=== PATIENT | male | born 1980 | race Caucasian/White ===

== ENCOUNTER 2018-01-27 04:10 | Emergency (ER) | payer SELFPAY ==
[2018-01-27 04:11] VITALS: BP 179/107; PULSE 94; RESP 20; TEMP 36.9; O2SAT 97; BMI 30.4
--- NOTE | 2018-01-27 04:21 | ED.DCSUM_ITS ---
- ER Visit Summary Date of Service: 01/27/18 Chief Complaint: [] Cramping History of Present Illness: The patient is a 37 M [] complaining of diffuse extremity and abdominal cramping. Patient reports symptoms were so severe he had difficulty getting out of bed. Reports he has had this type of cramping before in the past but this has never lasted as long as this current presentation. Denies fevers or chills. Physical Examination: [] Afebrile, vital signs stable. 37-year-old male in no acute distress. Conversational. Cardiovascular exam is regular rate and rhythm. Lungs are clear to auscultation. Abdomen is soft and nontender. No lower extremity edema. Test Results: [] Labs: White blood cell count elevated 16.1. BMP reveals a sodium of 134 and a BUN and creatinine of 27 and 1.39, respectively. LFTs normal. CK was obtained and measured 810. Emergency Department Course and Treatment: [] Patient given 1 L normal saline. On serial exam he had mild improvement of symptoms. After his CK level and creatinine returned he was given an additional liter bolus. He was encouraged to follow-up with his primary care physician. I do not feel any further diagnostic or laboratory testing was warranted. Treatment Plan: [] Hydration, follow-up with PCP. Disposition: [] Discharge, stable. Impression: [] Dehydration Muscle cramps This note was generated with [employer] dictation software. It may contain incorrect words, spelling, and punctuation that were not noted in review of the chart prior to signing ED Disposition - Plan for ED Patient: Chief Complaint: Other, Pain/Inj Referrals: Care Physician,No Primary [Primary Care Provider] -
[2018-01-27] MEDS: 0.9% Normal Saline 1,000 ML 1000 ML IV (04:33)
[2018-01-27 04:52] LABS: Absolute Neutrophil Count 11.9 X10^3/uL (2.0-7.7); Basophil# 0.02 X10^3/uL; Basophil% 0.1 % (0-1); Eosinophil# 0.03 X10^3/uL; Eosinophils% 0.2 % (0-5); Hemoglobin 15.7 g/dl (13.0-16.5); Lymphocyte % 19.2 % (19-41); Mean Corp Hgb Conc 34.9 g/gl (32-36); Mean Corpuscular Hgb 30.6 pg (27.0-32.0); Mean Corpuscular Volume 87.7 fL (80-94); Mean Platelet Vol. 10.1 fl (6.2-12.0); Monocyte# 1.09 X10^3/uL; Monocyte% 6.8 % (0-10); Neutrophil # 11.87 X10^3/uL (2.7-7.7); Neutrophil % 73.5 % (47-70); Platelet Count 310 K/mm3 (150-450); RBC Distribution Width CV 13.1 % (11.6-14.6); RBC Distribution Width SD 42.4 fl (35.1-43.9); Red Blood Count 5.13 M/mm3 (4.6-6.2); White Blood Count 16.1 K/mm3 (4.4-11.0)
[2018-01-27 05:00] LABS: POSITIVE COUNT NO; POSITIVE DIFFERENTIAL NO; POSITIVE MORPHOLOGY NO
[2018-01-27 05:27] LABS: AST(SGOT) 33 U/L (15-37); Alanine Aminotransfer ALT/SGPT 44 U/L (16-61); Albumin, Serum 4.4 g/dL (3.2-5.0); Alkaline Phosphatase 141 U/L (45-117); Anion Gap 12 (5-15); BUN 27 mg/dL (7-18); BUN/Creat Ratio 19.4 RATIO (10-20); Calcium,Total 9.2 mg/dL (8.5-10.1); Chloride 100 mmol/L (98-107); Creatinine, Serum 1.39 mg/dL (0.70-1.30); EST Glomerular Filtration Rate 61 mL/min (>60); Est Glom Filt Rate - Afr Amer 74 mL/min (>60); Globulin 4.2 g/dL (2.2-4.2); Glucose 160 mg/dL (74-106); Potassium 3.5 mmol/L (3.5-5.1); Protein, Total 8.6 g/dL (6.4-8.2); Sodium Level 134 mmol/L (136-145)
[2018-01-27 06:02] LABS: CPK Total, Creatine Kinase 810 U/L (39-308)
--- NOTE | 2018-01-27 06:25 | ED.DEP ---
ED Disposition - Plan for ED Patient: Disposition: Home or Assisted Living Chief Complaint: Other, Pain/Inj Instructions: ED Muscle Pain Leg Cramps, Dehydration Referrals: Care Physician,No Primary [Primary Care Provider] -
[2018-01-27] MEDS: 0.9% Normal Saline 1,000 ML 999 ML IV (06:29)
[2018-01-27 06:30] VITALS: BP 138/63; PULSE 67; RESP 12; O2SAT 98
[2018-01-27 08:04] VITALS: RESP 14
[2018-01-27 08:12] VITALS: BP 150/87; PULSE 74; RESP 16; TEMP 36.3; O2SAT 98
== END 2018-01-27 08:13 | disposition home or self-care (01) ==
PROVIDERS: Emergency Provider Emergency Medicine
DX: E86.0 Dehydration (principal); R25.2 Cramp and spasm; I10 Essential (primary) hypertension; Z72.0 Tobacco use
CPT/HCPCS: 80053; 82550; 85025; 99283; J7030; A4216; C1751

== ENCOUNTER 2018-06-17 00:35 | Emergency (ER) | payer MEDICAID, SELFPAY ==
[2018-06-17 00:36] VITALS: BP 158/101; PULSE 84; RESP 15; TEMP 36.5; O2SAT 98; BMI 33.4
--- NOTE | 2018-06-17 01:23 | CT_ITS ---
STUDY: CT ABDOMEN AND PELVIS WITH CONTRAST REASON FOR EXAM: Male, 37 years old. Left lower abdominal pain RADIATION DOSAGE (If Supplied By Facility): CTDIvol = ( 22.02 ) mGy, DLP = ( 1684.46 ) mGycm TECHNIQUE: Transaxial images were obtained from the dome of the diaphragm to the symphysis pubis without oral contrast. 100ML ml of Isovue 300 contrast was administered. Sagittal and coronal images were reconstructed. Individualized dose optimization techniques were used for this CT. COMPARISON: May 22, 2017. FINDINGS: 3 mm left lower lobe pulmonary nodule. The visualized portions of the heart are within normal limits. There is decreased attenuation of the liver consistent with steatosis. Normal gallbladder and extrahepatic biliary system. Normal spleen. Normal pancreas. Normal bilateral adrenal glands. Subcentimeter low-attenuation structure within the right kidney too small to characterize by CT criteria however statistically likely represents a cyst. No hydronephrosis identified. Normal visualized stomach. Normal small intestine. There is distal descending colonic wall thickening with some associated fatty stranding. There is mild diverticulosis present. The appendix is visualized and appears normal. Normal abdominal aorta. Normal inferior vena cava. Normal retroperitoneum. Normal urinary bladder. There is a small umbilical hernia containing fat. There is some fatty stranding seen within the hernia as well as within the adjacent abdomen. There are diffuse degenerative changes of the visualized lumbar spine. Left hip arthroplasty causes streak artifact through the region somewhat limiting evaluation. There is prior AVN of the right femoral head. CT/Abdomen/Pelvis W IV Cont ONLY IMPRESSION: Hepatic steatosis. The appendix is visualized and appears grossly unremarkable. There is a fat-containing ventral abdominal wall hernia. Within the hernia there is fatty stranding present. There is also fatty stranding within the adjacent abdomen. There is no significant bowel wall thickening within this region. Findings could represent strangulated/incarcerated fat/omentum. These findings have increased compared to prior exam. Distal descending colonic wall thickening with adjacent fatty stranding. This could represent focal colitis versus diverticulitis. Other findings as discussed above. Electronically Signed: Candido Lynn, at 2:36 EDT Tel , Service support ,
--- NOTE | 2018-06-17 01:23 | ED.VIS.GEN ---
History of Present Illness Chief Complaint: Abd Pain Informant: Patient Onset: Days - 3-4 Context: Gradual Onset Timing: Continuous Quality: ache Location: LLQ Current Severity: Moderate Maximum Severity: Moderate Worsened by: walking Relieved by: rest Associated Symptoms: vomited couple days ago. chronic low back pain. - Past Medical History (1) Avascular necrosis of bone of left hip Status: Chronic (2) GERD (gastroesophageal reflux disease) Status: Chronic Past Medical History - Allergies and Home Meds Allergies/Adverse Reactions: Allergies hydroxyzine HCl [From Atarax] Allergy (Verified 06/17/18 00:36) Hives ziprasidone HCl [From Geodon] Allergy (Verified 06/17/18 00:36) Hives ziprasidone mesylate [From Geodon] Allergy (Verified 06/17/18 00:36) Hives lisinopril Adverse Reaction (Verified 06/17/18 00:36) Other Primary Care Physician: Care Physician,No Primary [Primary Care Provider] - Surgical History: total hip arthroplasty - left Smoking Status: Current every day smoker Review of Systems General: Denies: Chills, Fever, Sweats Cardiovascular: Denies: Chest pain, Palpitations Respiratory: Denies: Dyspnea, Cough, Dyspnea on exertion Gastrointestinal: Reports: Abdominal pain, Vomiting - couple days ago, none since. pt does not think related.. Denies: Nausea, Diarrhea, Constipation, Melena, Hematochezia Genitourinary: Denies: Dysuria, Hematuria, Frequency Musculoskeletal: Reports: Back pain - chronic, no worse, Extremity Pain - right hip, chronic, unchanged. Denies: Neck pain, Swelling Skin: Denies: Rash Neurological: Denies: Headache, Weakness, Numbness Psych: Denies: Depression, Anxiety Endocrine: Denies: Polyuria, Polydipsia Hematologic: Denies: Easy bruising, Easy bleeding Allergy: Denies: Swelling of the mouth, Swelling of the tongue Physical Exam Vital Signs/Narrative: Vital Signs Temp Pulse Resp BP Pulse Ox 06/17/18 00:36 97.7 F L 84 15 158/101 H 98 Inital Vital Signs reviewed: Yes General: Well nourished, Well developed, - - nad Head: Normocephalic, Atraumatic Eyes: Perrl, EOMI ENT: Moist mucous membranes, No rhinorrhea Neck: Supple, Nontender Cardiovascular: Regular rate, Regular rhythm, No murmurs Respiratory: No distress, CTA bilaterally, Chest nontender Abdomen: Soft, Nondistended, Normal bowel sounds, Tender - LLQ > LUQ. otherwise, NT., Umbilical hernia - NT, no erythema, Hernia reducible Back: Nontender, Normal Inspection Extremities: Nontender, No edema Skin: Normal color, No rash Neurological: Alert, Oriented x3, Cranial nerves II-XII grossly intact, Normal Strength, Normal Sensation, Normal Gait Psychological: Normal affect Diagnostic/Tx/Re-eval Impressions Abdomen/Pelvis CT 06/17/18 01:23 IMPRESSION: Hepatic steatosis. The appendix is visualized and appears grossly unremarkable. There is a fat-containing ventral abdominal wall hernia. Within the hernia there is fatty stranding present. There is also fatty stranding within the adjacent abdomen. There is no significant bowel wall thickening within this region. Findings could represent strangulated/incarcerated fat/omentum. These findings have increased compared to prior exam. Distal descending colonic wall thickening with adjacent fatty stranding. This could represent focal colitis versus diverticulitis. Other findings as discussed above. Electronically Signed: Candido Leah, at 2:36 EDT Tel , Service support , 06/17/18 01:23 Abdomen/Pelvis W IV Cont ONLY [CT] Stat Laboratory Results 06/17/18 06/17/18 06/17/18 01:35 01:35 01:40 WBC 13.0 H RBC 4.91 Hgb 15.0 Hct 45.0 MCV 91.6 MCH 30.5 MCHC 33.3 RDW 13.9 RDW Differential 45.8 H Plt Count 292 MPV 9.5 Immature Gran % (Auto) 0.500 Neut % (Auto) 66.3 Lymph % (Auto) 22.5 [place] % (Auto) 6.0 Eos % (Auto) 4.5 Baso % (Auto) 0.2 Absolute Neuts (auto) 8.7 H Absolute Lymphs (auto) 2.93 Total Counted Not Reportable Sodium 140 Potassium 4.1 Chloride 109 H Carbon Dioxide 27.0 Anion Gap 4 L BUN 11 Creatinine 0.93 Estim Creat Clear Calc 105.22 Est GFR (MDRD) Af Amer 117 Est GFR (MDRD) Non-Af 97 BUN/Creatinine Ratio 11.9 Glucose 108 H Calcium 8.8 Urine Color Yellow Urine Clarity Clear Urine pH 5.0 Ur Specific [place] 1.020 Urine Protein Negative Urine Glucose (UA) Normal Urine Ketones Negative Urine Occult Blood 10 H Urine Nitrite Negative Urine Bilirubin Negative Urine Urobilinogen Normal Ur Leukocyte Esterase Negative Urine RBC 0 SEEN Urine WBC 0 SEEN Ur Squamous Epith Cells 0 SEEN Urine Bacteria 0 SEEN Urine Mucus 0 SEEN - Medical Decision Making Labs show a leukocytosis, urinalysis unremarkable. Given the location of his pain I thought a CT with IV contrast was warranted, and it does confirm suspicion for diverticulitis. It also shows some stranding in the fat that is within his ventral hernia. This area is nontender, it feels easily reducible and does not feel like it contains bowel. I think it is less likely that he is having infarction of this mesenteric fat since he has no pain or tenderness in that area, but the treatment for the most part is supportive care for that, which was suggested also on the CT. His pain is well controlled after a dose of Toradol. He is nontoxic and his vital signs are unremarkable except for hypertension, he does not have a PCP, he will need to have his blood pressure rechecked and follow-up with a doctor, Dr. Allen is the next doctor on the unassigned list. I think he can be treated as an outpatient and will need to follow-up and possibly have a colonoscopy when he is better. He is getting IV Cipro and Flagyl and will be prescribed a 10-day course of both. He is comfortable with this overall plan. ED Disposition - Plan for ED Patient: Disposition: Home or Assisted Living Chief Complaint: Abd Pain Diagnosis: Diverticulitis Instructions: ED Diverticulitis Prescriptions: Ciprofloxacin [Cipro] 500 mg PO BID #20 tab Metronidazole [Flagyl] 500 mg PO BID #20 tab Referrals: Jared Allen MD [STAFF PHYSICIAN] - 5-7 Days
[2018-06-17] MEDS: 0.9% Normal Saline 1,000 ML 125 ML IV (01:36)
[2018-06-17] MEDS: Ketorolac 30 MG/ML Syringe IV (01:36)
[2018-06-17 01:42] LABS: Bacteria 0 SEEN /hpf (None Seen); Mucous, Urine 0 SEEN /hpf (<or=2+); Red Blood Cells-Urine 0 SEEN /hpf (0-5); Squamous Epithelial Cells - UA 0 SEEN /hpf (0-5); White Blood Cells 0 SEEN /hpf (0-5)
[2018-06-17 01:45] LABS: Absolute Lymphocyte Count 2.93 X10^3/ul (0.83-4.51); Absolute Neutrophil Count 8.7 X10^3/uL (2.0-7.7); Basophil# 0.03 X10^3/uL; Basophil% 0.2 % (0-1); Eosinophil# 0.59 X10^3/uL; Eosinophils% 4.5 % (0-5); Lymphocyte # 2.93 X10^3/ul (4.0); Lymphocyte % 22.5 % (19-41); Mean Corp Hgb Conc 33.3 g/gl (32-36); Mean Corpuscular Hgb 30.5 pg (27.0-32.0); Mean Corpuscular Volume 91.6 fL (80-94); Mean Platelet Vol. 9.5 fl (6.2-12.0); Monocyte# 0.78 X10^3/uL; Neutrophil # 8.65 X10^3/uL (2.7-7.7); Neutrophil % 66.3 % (47-70); Platelet Count 292 K/mm3 (150-450); RBC Distribution Width CV 13.9 % (11.6-14.6); RBC Distribution Width SD 45.8 fl (35.1-43.9); Red Blood Count 4.91 M/mm3 (4.6-6.2)
[2018-06-17 01:45] LABS: Color, Urine Yellow (Yellow); Glucose, Dipstick Normal (Normal); Ketone-Dipstick Negative (Negative); Leukocyte Esterase-Dipstick Negative /ul (Negative); Nitrite-Dipstick Negative (Negative); Occult Blood-Urine 10 /ul (Negative); Protein-Dipstick Negative (Negative); Urine Bilirubin Dipstick Negative (Negative); Urine Clarity Clear (Clear); Urine Urobilinogen Normal (Normal)
[2018-06-17 01:47] LABS: POSITIVE COUNT NO; POSITIVE DIFFERENTIAL NO; POSITIVE MORPHOLOGY NO
[2018-06-17 01:57] LABS: Anion Gap 4 (5-15); BUN 11 mg/dL (7-18); BUN/Creat Ratio 11.9 RATIO (10-20); Calcium,Total 8.8 mg/dL (8.5-10.1); Chloride 109 mmol/L (98-107); Creatinine, Serum 0.93 mg/dL (0.70-1.30); EST Glomerular Filtration Rate 97 mL/min (>60); Est Glom Filt Rate - Afr Amer 117 mL/min (>60); Estimated Creatinine Clearance 105.22 ml/min; Glucose 108 mg/dL (74-106); Potassium 4.1 mmol/L (3.5-5.1); Sodium Level 140 mmol/L (136-145)
[2018-06-17] MEDS: Ciprofloxacin 400 MG/200 ML BAG 200 MG IV (03:22)
[2018-06-17 04:36] VITALS: BP 141/72; PULSE 80; RESP 14; O2SAT 98
== END 2018-06-17 04:37 | disposition home or self-care (01) ==
PROVIDERS: Emergency Provider Emergency Medicine
DX: K57.92 Diverticulitis of intestine, part unspecified, without perforation or abscess without bleeding (principal); K43.9 Ventral hernia without obstruction or gangrene; F17.200 Nicotine dependence, unspecified, uncomplicated; K21.9 Gastro-esophageal reflux disease without esophagitis; M87.850 Other osteonecrosis, pelvis; Z96.642 Presence of left artificial hip joint
CPT/HCPCS: 74177; 80048; 81001; 85025; 96361; 96365; 96367; 96375; 99283; J7030; Q9967; A4216; J0744

== ENCOUNTER 2018-10-03 17:46 | Emergency (ER) | payer MEDICAID, SELFPAY ==
[2018-09-12 09:17] VITALS: BMI 34.3
[2018-10-03 17:46] VITALS: BP 145/115; PULSE 94; RESP 17; TEMP 36.7; O2SAT 99; BMI 32.5
--- NOTE | 2018-10-03 18:01 | ED.VISSUMM ---
- ER Visit Summary Date of Service: 10/03/18 Chief Complaint: Right shoulder injury History of Present Illness: The patient is a 38 M [id number] presents valuation right upper extremity injury occurring around 9 AM this morning. Slipped on ice on outstretched arm. No head injuries. Pain worse with overhead movement. Pain goes from the shoulder to the elbow. No paresthesias. No history of similar in the past. History of avascular necrosis with left total hip arthroplasty. Performed by Dr. Allen in [place]. No history of gastric ulcers, reports may have had kidney insufficiency on a visit here in the past. No medications taken prior to arrival. States just wants to know was not broken so he can do his job. There is no head injuries. No neck or back pain. Physical Examination: General: Alert and oriented ?3, no acute distress HEENT: Normocephalic, atraumatic. Moist mucosa membranes Neck: supple, nontender. Cardiovascular: Regular rate and rhythm, no murmurs Respiratory: Normal breath sounds, symmetric, no distress Abdomen: Soft, nontender, nondistended Extremities: Right upper extremity: No clavicular tenderness. No reproducible proximal shoulder tenderness with palpation no deformities. No elbow tenderness. Positive empty can and Appley's. Neurovascular intact distally. Neuro: no focal neurological deficits. Test Results: Right shoulder x-ray: No fracture or dislocation. Emergency Department Course and Treatment: Patient exam concerns for rotator cuff strain specifically the supraspinatus. Patient declined any medications. With his concerns for rule out fracture x-ray was obtained reviewed myself shows no fracture or dislocation. Exercises were shown to the patient. Discussed he can use Tylenol as needed. I did review records back in January of last year he did have slight renal insufficiency resolved at 1.3. Patient will follow up with his PCP. He is reassured. Treatment Plan: [] Disposition: Discharge Impression: Right rotator cuff muscle strain This note was generated with [employer] dictation software. It may contain incorrect words, spelling, and punctuation that were not noted in review of the chart prior to signing ED Disposition - Plan for ED Patient: Disposition: Home or Assisted Living Diagnosis: Rotator cuff strain Instructions: Understanding Rotator Cuff Injuries Referrals: Jonathan Ellington MD [Primary Care Provider] - 5-7 Days
--- NOTE | 2018-10-03 18:02 | RAD_ITS ---
STUDY: X-RAY - RIGHT SHOULDER REASON FOR EXAM: Male, 38 years old. Injury TECHNIQUE: 4 view(s) of the shoulder. COMPARISON: None. FINDINGS: Normal glenohumeral articulation. Mild degenerative hypertrophy of the acromioclavicular joint. Normal acromion. Normal humeral head and visualized proximal humerus. The soft tissue structures are unremarkable. Normal visualized pulmonary apex. RAD/Shoulder min 2 Views IMPRESSION: Mild degenerative changes of the shoulder. Electronically Signed: Orlando Bueno DO at 18:38 EST Tel [phone], Service support ,
== END 2018-10-03 18:22 | disposition home or self-care (01) ==
PROVIDERS: Emergency Provider Emergency Medicine; Family Provider Internal Medicine; PCP Internal Medicine
DX: S46.011A Strain of muscle(s) and tendon(s) of the rotator cuff of right shoulder, initial encounter (principal); W00.0XXA Fall on same level due to ice and snow, initial encounter; Y93.9 Activity, unspecified; Y92.89 Other specified places as the place of occurrence of the external cause; Y99.9 Unspecified external cause status; Z72.0 Tobacco use; J45.909 Unspecified asthma, uncomplicated; I10 Essential (primary) hypertension; K21.9 Gastro-esophageal reflux disease without esophagitis
CPT/HCPCS: 73030; 99282

== ENCOUNTER 2019-05-08 07:44 | Emergency (ER) | payer MEDICAID, SELFPAY ==
[2019-05-08 07:46] VITALS: BP 153/94; PULSE 70; RESP 18; TEMP 36.9; O2SAT 100; BMI 31.6
--- NOTE | 2019-05-08 08:00 | RAD_ITS ---
STUDY: X-RAY - PELVIS AND LEFT HIP REASON FOR EXAM: Male, 38 years old. Coccygeal pain. No known injury. TECHNIQUE: 3 views of the pelvis and hip. COMPARISON: Comparison is made with prior study dated May 27, 2016. FINDINGS: There is a non-specific bowel gas pattern. There are multiple calcified phleboliths. Normal bilateral iliac wings, sacroiliac joints and visualized sacrum. Normal bilateral superior and inferior pubic rami. Normal pubic symphysis. Normal bilateral ischial tuberosities. The patient is status post left hip replacement. There is good alignment. Stable examination. Once again, this prominent enthesophytes arising from the left acetabulum. RAD/HIP, UNI W/ Pelvis 2-3 Views IMPRESSION: Stable examination. Electronically Signed: Sacha Gonzales, at 8:32 EDT , Service support ,
[2019-05-08] MEDS: Naproxen 500 MG Tablet PO (08:18)
--- NOTE | 2019-05-08 08:35 | ED.VISSUMM ---
- ER Visit Summary Date of Service: 05/08/19 Chief Complaint: Left hip and tailbone pain History of Present Illness: The patient is a [address] Ellington and Dr. Allen. He reports that he had a left hip replacement in 2013 for avascular necrosis by Dr. Allen. He denies any recent trauma. No fall, MVA, or change in activity. However, he reports he has chronic left hip pain that worsened approximately 1 week ago. It is a sharp pain Zeta 10 severity at worst and 7-10 currently. Is worsened with movement, bending over, or coughing. Is relieved by shifting his weight, sitting down, naproxen. Denies any numbness or weakness. No fever or chills. Physical Examination: Vitals: Stable. Afebrile. General: Well-nourished and well-developed. Head: Normocephalic atraumatic. Neck: Supple, no lymphadenopathy. No JVD. Nontender. Cardiovascular: Regular rate and rhythm. No murmurs. Respiratory: No respiratory distress. Clear to auscultation bilaterally. Abdominal: Soft, nontender, nondistended, normal bowel sounds. No guarding, rebound, or peritoneal signs. Back: Nontender. Extremities: Mild tenderness palpation over the left greater trochanter and the posterior aspect of his hip. Mild tenderness palpation over the coccyx and sacrum. Full range of motion without any difficulty. He is neurovascular intact distal to this. There is no overlying erythema or warmth to suggest an infected joint. Skin: Normal color, no rash. Neurologic: Alert and oriented ?3. Cranial nerves II through XII are intact. Normal strength and sensation. Psych: Normal affect. Test Results: Left hip right x-ray shows chronic changes. The hardware is intact. It does not appear to be loosening. Emergency Department Course and Treatment: Patient was treated with naproxen. He is ambulating about the emergency department without difficulty. Treatment Plan: Patient be discharged on naproxen. Instructed to follow-up with Dr. Allen in 1 week if not improving. Return to the emergency department for any worsening symptoms. Disposition: To home in improved and stable condition. Impression: 1. Left hip pain, acute on chronic. 3. History of avascular necrosis left hip requiring total hip arthroplasty. This note was generated with [employer] software. It may contain incorrect words, spelling, and punctuation that were not noted in review of the chart prior to signing ED Disposition - Plan for ED Patient: Instructions: Hip Strain Prescriptions: Naproxen [Naprosyn] 500 mg PO BID #14 tab Prescription Printed Referrals: Dusty Davila [NON-STAFF] - 1 Week if not improving
[2019-05-08 08:53] VITALS: RESP 16
== END 2019-05-08 08:53 | disposition home or self-care (01) ==
LOC: ED 08:06
PROVIDERS: Emergency Provider Emergency Medicine; Family Provider Internal Medicine; PCP Internal Medicine
DX: M25.552 Pain in left hip (principal); G89.29 Other chronic pain; M53.3 Sacrococcygeal disorders, not elsewhere classified; Z96.642 Presence of left artificial hip joint; R05 Cough; J02.9 Acute pharyngitis, unspecified; I10 Essential (primary) hypertension; F17.210 Nicotine dependence, cigarettes, uncomplicated
CPT/HCPCS: 73502; 99283

== ENCOUNTER 2020-06-04 19:53 | Emergency (ER) | payer SELFPAY ==
[2020-06-04 19:54] VITALS: BP 161/111; PULSE 120; RESP 18; TEMP 36.2; O2SAT 99
--- NOTE | 2020-06-04 20:26 | RAD_ITS ---
HISTORY: Neck pain for several months radiating into right shoulder. Exam: Right Shoulder 3 views COMPARISON: October 03, 2018 FINDINGS: # of images incl. paperwork: 4 XR Shoulder Min 2 Views: The humeral head is well-positioned within the glenoid fossa. No fracture or subluxation. The acromioclavicular joint is arthritic. The adjacent chest is unremarkable. RAD/Shoulder min 2 Views IMPRESSION: No evidence of acute injury or dislocation to the right shoulder. Progressive right acromioclavicular joint arthritis. at 2107 Reported and signed by: Fabrizio Downing MD Electronically Signed: Fabrizio Downing MD at 21:06 EDT Tel , Service support ,
--- NOTE | 2020-06-04 20:26 | RAD_ITS ---
HISTORY: Neck pain for several months radiating into right shoulder. COMPARISON: None FINDINGS: # of images incl. paperwork: 3 XR Spine Cervical 2 or 3 Views: Degenerative loss of vertebral body height of the C5 vertebral body All 7 cervical vertebral bodies are identified. No acute cervical spine fracture or subluxation. Normal cervical spine alignment. Odontoid is intact. Degenerative disc disease is present at the C4-C5 C5-C6 levels. Is manifested by loss of disc height, endplate sclerosis, and anterior enthesophytes. Previous fracture fixation to the angle of the mandible on the left. Prevertebral soft tissues are normal. Facets are adequately aligned. Uncovertebral hypertrophy is present at C5 and C6 RAD/Cerv Spine 2 or 3 Views IMPRESSION: No acute cervical spine fracture or subluxation. at 2106 Reported and signed by: Fabrizio Downing MD Electronically Signed: Fabrizio Downing MD at 21:05 EDT Tel , Service support ,
--- NOTE | 2020-06-04 20:27 | ED.VIS.GEN ---
History of Present Illness Chief Complaint: Other, Pain/Inj Informant: Patient Narrative: 39-year-old male presenting with trapezius and shoulder pain which radiates down his arm. He states this is a longstanding issue but is been getting worse. He has tried ibuprofen and Tylenol but this is not helping. He has not seen his PCP for this issue. He has no direct trauma or acute injury that caused this. - Past Medical History (1) GERD (gastroesophageal reflux disease) Status: Chronic (2) Hypertension Status: Chronic Past Medical History - Allergies and Home Meds Allergies/Adverse Reactions: Allergies hydroxyzine HCl [From Atarax] Allergy (Verified 06/04/20 19:56) Hives ziprasidone HCl [From Geodon] Allergy (Verified 06/04/20 19:56) Hives ziprasidone mesylate [From Geodon] Allergy (Verified 06/04/20 19:56) Hives lisinopril Adverse Reaction (Verified 06/04/20 19:56) Other Primary Care Physician: Jonathan Ellington MD [Primary Care Provider] - Prior records reviewed: Yes Past Medical History: - - Reviewed in problem list Surgical History: noncontributory, total hip arthroplasty Lives: Alone Smoking Status: Current every day smoker Alcohol: None Drugs: None Review of Systems General: Denies: Chills, Fever, Sweats Eyes: Denies: Visual changes - bilaterally, Diplopia ENT: Denies: Rhinorrhea, Sore throat Cardiovascular: Denies: Chest pain, Palpitations Respiratory: Denies: Dyspnea, Cough, Dyspnea on exertion Gastrointestinal: Denies: Abdominal pain, Nausea, Vomiting, Diarrhea, Melena, Hematochezia Genitourinary: Denies: Dysuria, Hematuria, Frequency Musculoskeletal: Reports: Neck pain, Extremity Pain, - Skin: Denies: Rash, Abscess Neurological: Reports: Parasthesia. Denies: Headache, Weakness Physical Exam Vital Signs/Narrative: Vital Signs Temp Pulse Resp BP Pulse Ox 06/04/20 19:54 97.2 F L 120 H 18 161/111 H 99 General: Well nourished, Well developed, No Acute Distress Head: Normocephalic, Atraumatic Eyes: Perrl, EOMI ENT: Moist mucous membranes, No rhinorrhea Neck: - - Midline spinal tenderness, deformity, step-off of the cervical spine. There is tenderness elicited in the right cervical paraspinal musculature and the trapezius. Cardiovascular: Regular rate, Regular rhythm Respiratory: No distress, CTA bilaterally Extremities: - - Tenderness to palpation of the right trapezius and right anterior shoulder at the AC joint. Pain is elicited at both with extension and abduction of the right shoulder. Right hand respiratory therapy technician is 5/5 strength. Sensation is intact. Neurological: Alert, Oriented x3 Psychological: Normal affect, Normal Mood Diagnostic/Tx/Re-eval Clinical Impression(s) from Imaging Studies Cervical Spine X-Ray 06/04/20 20:26 IMPRESSION: No acute cervical spine fracture or subluxation. at 2106 Reported and signed by: Fabrizio Downing MD Electronically Signed: Fabrizio Downing MD at 21:05 EDT Tel , Service support , Shoulder X-Ray 06/04/20 20:26 IMPRESSION: No evidence of acute injury or dislocation to the right shoulder. Progressive right acromioclavicular joint arthritis. at 2107 Reported and signed by: Fabrizio Downing MD Electronically Signed: Fabrizio Downing MD at 21:06 EDT Tel , Service support , - Medical Decision Making Patient presents with symptoms of cervical radiculopathy. He does have focal pain in the anterior portion of his shoulder over the AC joint. X-rays of the cervical spine no degenerative changes of the shoulder as well as degenerative changes at C5-C6 which would explain his radiculopathy. Patient counseled to follow-up with his PCP. Patient is stable for discharge at this time. Impression: 1. Arthritic right shoulder 2. Cervical radiculopathy ED Disposition - Plan for ED Patient: Referrals: Jonathan Ellington MD [Primary Care Provider] -
== END 2020-06-04 22:05 | disposition home or self-care (01) ==
PROVIDERS: Emergency Provider Student in an Organized Health Care Education/Training Program; PCP Internal Medicine
DX: M19.011 Primary osteoarthritis, right shoulder (principal); M54.12 Radiculopathy, cervical region; F17.200 Nicotine dependence, unspecified, uncomplicated
CPT/HCPCS: 72040; 73030; 99282

== ENCOUNTER → 2020-11-11 09:28 | Outpatient (CLI) | payer MEDICAID, SELFPAY ==
[2020-11-11 08:24] VITALS: BMI 29.5
[2020-11-11 12:16] LABS: Absolute Lymphocyte Count 2.39 X10^3/uL (0.83-4.51); Absolute Neutrophil Count 6.2 X10^3/uL (2.0-7.7); Basophil# 0.04 X10^3/uL; Basophil% 0.4 % (0-1); Eosinophil# 0.38 X10^3/uL; Eosinophils% 3.9 % (0-5); Hematocrit 48.6 % (40-54); Hemoglobin 15.4 g/dL (13.0-16.5); Lymphocyte # 2.39 X10^3/ul (4.0); Lymphocyte % 24.4 % (19-41); Mean Corp Hgb Conc 31.7 g/dL (32-36); Mean Corpuscular Hgb 29.6 pg (27.0-32.0); Mean Corpuscular Volume 93.5 fL (80-94); Monocyte# 0.72 X10^3/uL; Monocyte% 7.4 % (0-10); NRBC Flagged by Analyzer 0 % (0-5); Neutrophil # 6.18 X10^3/uL (2.7-7.7); Neutrophil % 63.1 % (47-70); Platelet Count 357 K/mm3 (150-450); RBC Distribution Width CV 13.3 % (11.6-14.6); RBC Distribution Width SD 45.9 fl (35.1-43.9); White Blood Count 9.8 K/mm3 (4.4-11.0)
[2020-11-11 12:23] LABS: Vitamin D,25 Hydroxy 13.7 ng/mL
[2020-11-11 12:25] LABS: Hemoglobin A1c 5.8 % (3.8-5.6)
[2020-11-11 12:26] LABS: Erythrocyte Sedimentation Rate 6 mm/hr (0-20)
[2020-11-11 12:32] LABS: ALB/GLOB Ratio 1.1 RATIO (0.9-2.4); AST(SGOT) 18 U/L (15-37); Alanine Aminotransfer ALT/SGPT 38 U/L (16-61); Albumin, Serum 4.1 g/dL (3.2-5.0); Alkaline Phosphatase 123 U/L (45-117); Anion Gap 3 (5-15); BUN 12 mg/dL (7-18); BUN/Creat Ratio 13.8 RATIO (10-20); CPK Total, Creatine Kinase 119 U/L (39-308); CRP < 2.90 mg/L (0.0-3.0); Calcium,Total 9.8 mg/dL (8.5-10.1); Chloride 106 mmol/L (98-107); Cholesterol 214 mg/dL (200); Creatinine, Serum 0.87 mg/dL (0.70-1.30); EST Glomerular Filtration Rate 103 mL/min (>60); Est Glom Filt Rate - Afr Amer 125 mL/min (>60); Free T3 3.2 pg/mL (2.18-3.98); Globulin 3.9 g/dL (2.2-4.2); Glucose 86 mg/dL (74-106); High Density Lipoprotein 61 mg/dL; PSA,Total - Annual Screen 1.48 ng/mL (0.00-4.00); Potassium 4.8 mmol/L (3.5-5.1); Sodium Level 139 mmol/L (136-145); T4 Free Direct 1.09 ng/dL (0.76-1.46); Thyroid Stim Hormone (TSH) 1.08 uIU/mL (0.358-3.74); Triglycerides 166 mg/dL; Very Low Density Lipoprotein 33 mg/dL (5-40)
[2020-11-12 16:09] LABS: Creatine Kinase MB 0 % (0-3); Creatine Kinase MM 100 % (97-100); Creatine Kinase,Total,Serum 119 U/L (49-439); Macro I 0 % (Not Observed); Macro II 0 % (Not Observed)
[2020-11-12 21:41] LABS: Creatine Kinase BB 0 % (0)
== END ==
PROVIDERS: PCP Internal Medicine; Referring Provider Internal Medicine; Visit Provider Internal Medicine
DX: M19.90 Unspecified osteoarthritis, unspecified site (principal); I10 Essential (primary) hypertension; K21.9 Gastro-esophageal reflux disease without esophagitis; R74.8 Abnormal levels of other serum enzymes; R25.2 Cramp and spasm
CPT/HCPCS: 36415; 80053; 80061; 82306; 82550; 82552; 83036; 84153; 84439; 84443; 84481; 85025; 85652; 86140; G0103

== ENCOUNTER → 2021-02-25 09:05 | Outpatient (CLI) | payer MEDICAID, SELFPAY ==
[2021-02-25 08:24] VITALS: BMI 29.5
[2021-02-25 13:05] LABS: Anion Gap 7 (5-15); BUN 22 mg/dL (7-18); BUN/Creat Ratio 20.6 RATIO (10-20); Calcium,Total 9.9 mg/dL (8.5-10.1); Chloride 102 mmol/L (98-107); Creatinine, Serum 1.07 mg/dL (0.70-1.30); EST Glomerular Filtration Rate 81 mL/min (>60); Est Glom Filt Rate - Afr Amer 98 mL/min (>60); Glucose 100 mg/dL (74-106); Magnesium 2.3 mg/dL (1.6-2.6); Potassium 4.4 mmol/L (3.5-5.1); Sodium Level 135 mmol/L (136-145)
== END ==
PROVIDERS: PCP Internal Medicine; Referring Provider Physician Assistant; Visit Provider Physician Assistant
DX: I10 Essential (primary) hypertension (principal); R25.2 Cramp and spasm
CPT/HCPCS: 36415; 80048; 83735

== ENCOUNTER 2021-04-19 20:07 | Emergency (ER) | payer MEDICAID, SELFPAY ==
[2021-03-28 08:15] VITALS: BMI 29.5
[2021-04-19 20:07] VITALS: BP 156/98; PULSE 97; RESP 18; TEMP 36.1; O2SAT 98; BMI 31.9
--- NOTE | 2021-04-19 21:18 | CT_ITS ---
STUDY: CT SOFT TISSUE NECK WITH CONTRAST REASON FOR EXAM: Male, 40 years old. Odynophagia RADIATION DOSAGE (If Supplied By Facility): CTDIvol = ( 17.74 ) mGy, DLP = ( 571.67 ) mGycm TECHNIQUE: The patient was scanned in a multi-detector CT scanner. High resolution transaxial imaging was performed following intravenous administration of IV 100mL Isovue-370. Sagittal and coronal images were reconstructed. Individualized dose optimization techniques were used for this CT. COMPARISON: None. FINDINGS: Normal bilateral parotid glands. Normal bilateral emergency medicine physician spaces. Normal bilateral parapharyngeal spaces. Normal bilateral carotid spaces. Normal bilateral sublingual and submandibular glands and spaces. Normal visualized nasopharynx. Normal retropharyngeal space. Normal perivertebral space. Striated appearance of Waldeyer''s ring. The visualized tongue, tongue base and oropharynx are normal. The visualized cervical lymph nodes (levels I-) are within normal size limits, and maintain normal morphology. There is no demonstrated solid or cystic mass lesion. There is no abnormal contrast enhancement. Normal epiglottis, bilateral vallecula and hypopharynx. The pre-epiglottic and paraglottic adipose spaces are normal. Normal visualized bilateral piriform sinuses, aryepiglottic folds, vocal cords, and arytenoid-cricoid articulations. Normal subglottic trachea. Normal bilateral lobes of the thyroid gland. Normal visualized pulmonary apices. Normal visualized paranasal sinuses. Normal visualized cervical spine. CT/Soft Tissue Neck WITH Contrast IMPRESSION: Findings suggest diffuse tonsillitis. No drainable fluid collection to suggest abscess. Electronically Signed: Se Miramontes MD at 22:07 EDT Tel , Service support ,
[2021-04-19 21:49] LABS: Absolute Lymphocyte Count 3.03 X10^3/uL (0.83-4.51); Absolute Neutrophil Count 11.6 X10^3/uL (2.0-7.7); Basophil# 0.05 X10^3/uL; Basophil% 0.3 % (0-1); Eosinophil# 0.29 X10^3/uL; Eosinophils% 1.8 % (0-5); Hematocrit 40.8 % (40-54); Hemoglobin 13.6 g/dL (13.0-16.5); Lymphocyte # 3.03 X10^3/ul (0.83-4.51); Lymphocyte % 18.6 % (19-41); Mean Corp Hgb Conc 33.3 g/dL (32-36); Mean Corpuscular Volume 89.9 fL (80-94); Mean Platelet Vol. 9.6 fl (6.2-12.0); Monocyte# 1.29 X10^3/uL; Monocyte% 7.9 % (0-10); NRBC Flagged by Analyzer 0 % (0-5); Neutrophil # 11.57 X10^3/uL (2.7-7.7); Neutrophil % 70.8 % (47-70); Platelet Count 358 K/mm3 (150-450); RBC Distribution Width CV 12.5 % (11.6-14.6); RBC Distribution Width SD 41.1 fl (35.1-43.9); Red Blood Count 4.54 M/mm3 (4.6-6.2); White Blood Count 16.3 K/mm3 (4.4-11.0)
[2021-04-19 22:06] LABS: Anion Gap 5 (5-15); BUN 17 mg/dL (7-18); BUN/Creat Ratio 21.2 RATIO (10-20); Calcium,Total 9.4 mg/dL (8.5-10.1); Chloride 102 mmol/L (98-107); EST Glomerular Filtration Rate 113 mL/min (>60); Est Glom Filt Rate - Afr Amer 137 mL/min (>60); Estimated Creatinine Clearance 118.75 ml/min; Glucose 106 mg/dL (74-106); Sodium Level 137 mmol/L (136-145)
--- NOTE | 2021-04-19 22:50 | EX.ED.VIS.UR ---
HPI HPI - URI History of Present Illness Chief Complaint: Sore Throat Informant: patient Onset/Context/Timing Onset: Weeks (3) Context: Gradual Onset Timing: Continuous Location: throat Current Severity: Severe Maximum Severity: Severe Worsened by: Swallowing Narrative Narrative: Patient with sore throat that he states has been progressively worsening for 3 weeks, has been there every day this is the first he has been seen for it, stating that today he has really felt like the worst day. He is able to swallow but it hurts diffusely. Denies any fevers or chills, he states I do not feel sick, it is just my throat. He denies any contact with anyone with Covid that he knows of. He has not been vaccinated. He states he has been dealing with a red rash that is worst in his armpits that for the most part is asymptomatic, except when he takes his shirt off at the end of the day sometimes it is a little sore. No itching. It has been there for over 2 months. He states his doctor prescribed him nystatin powder but it is not doing anything. ROS ROS ED Constitutional Constitutional ED: Denies chills or fever(s) Eyes Eyes: Denies change in vision or diplopia ENT ENT ED: Reports odynophagia, sore throat and throat swelling; Denies rhinorrhea Cardiovascular Cardiovascular: Denies chest pain or palpitations Respiratory/Chest Respiratory/Chest: Denies cough or dyspnea Gastrointestinal Gastrointestinal: Denies abdominal pain, diarrhea, nausea or vomiting Genitourinary Genitourinary ED: Denies dysuria or hematuria Musculoskeletal Musculoskeletal: Denies back pain or neck pain Integumentary Reports rash; Denies abscess Neurologic Neurologic: Denies headache(s), paresthesias or weakness Psychiatric Psychiatric: Denies anxiety or suicidal thoughts [facility] Medical History Arthritis Avascular necrosis bone deteriorization GERD (gastroesophageal reflux disease) history tongue clipped Hypertension Home Medications magnesium oxide 400 mg (241.3 mg magnesium) tablet 400 mg PO DAILY tab 08/13/18 [History Last Taken Unknown] acetaminophen 500 mg tablet 500 mg PO Q6H PRN #90 tab 09/12/18 [Rx Last Taken Unknown] cholecalciferol (vitamin D3) 50 mcg (2,000 unit) capsule 2,000 unit PO DAILY #90 cap 09/19/18 [Rx Last Taken Unknown] cyclobenzaprine 10 mg tablet 10 mg PO TID PRN #20 tab 02/04/21 [Rx Last Taken Unknown] fluticasone propionate 50 mcg/actuation nasal spray,suspension 2 spray INTRANASAL DAILY #47.4 g 02/04/21 [Rx Last Taken Unknown] gabapentin 300 mg capsule 300 mg PO QHS #30 cap 02/04/21 [Rx Last Taken Unknown] hydrochlorothiazide 25 mg tablet 25 mg PO DAILY #90 tab 02/04/21 [Rx Last Taken Unknown] pantoprazole 20 mg tablet,delayed release 20 mg PO DAILY #90 tab 02/04/21 [Rx Last Taken Unknown] budesonide-formoterol HFA 80 mcg-4.5 mcg/actuation aerosol inhaler 2 puff INHALATION BID #10.2 g 02/08/21 [Rx Last Taken Unknown] albuterol sulfate 90 mcg/actuation aerosol inhaler 2 puff INHALATION Q6H PRN #18 g 02/25/21 [Rx Last Taken Unknown] blood pressure monitor #1 ea 02/25/21 [Rx Last Taken Unknown] lamotrigine 100 mg tablet 50 mg PO DAILY #30 tab 03/28/21 [Rx Last Taken Unknown] nystatin 100,000 unit/gram topical powder 1 applic TOPICAL BID #60 g 03/28/21 [Rx Last Taken Unknown] amlodipine 2.5 mg tablet 2.5 mg PO DAILY #30 tab 03/29/21 [Rx Last Taken Unknown] amlodipine 5 mg tablet 5 mg PO DAILY #30 tab 03/29/21 [Rx Last Taken Unknown] amoxicillin 500 mg PO TID #30 tab 04/19/21 [Rx Last Taken Unknown] Allergy/AdvReac Type Severity Reaction Status Date / Time hydroxyzine HCl [From Atarax] Allergy Hives Verified 04/19/21 20:09 ziprasidone HCl [From Geodon] Allergy Hives Verified 04/19/21 20:09 ziprasidone mesylate Allergy Hives Verified 04/19/21 20:09 [From Geodon] lisinopril AdvReac Cough Verified 04/19/21 20:09 Family History Mother Diabetes Heart disease Kidney disease Grandfather Diabetes Grandmother Diabetes Father Heart disease Kidney disease Surgical History History of elbow surgery History of left hip replacement Social History Smoking Status: Current every day smoker tobacco type: cigarettes Tobacco: How many years used: 22 alcohol intake: current alcohol intake frequency: holidays/special occasions only substance use type: marijuana what type of physical activity do you participate in: none EXAM Physical Exam Const Vital Signs: 04/19/21 20:07 Temperature 97 F L Temperature Source Temporal Pulse Rate 97 Respiratory Rate 18 Blood Pressure 156/98 H Blood Pressure Mean 117 Pulse Ox 98 Oxygen Delivery Method Room Air Positive well nourished and well developed General Appearance ED: well developed and NAD HEENT Reports moist mucous membranes normocephalic and atraumatic Eyes PERRL and EOMs intact bilaterally Neck full ROM and supple Resp normal respiratory effort and clear to auscultation bilaterally Cardio regular rate, regular rhythm and no murmurs GI non-tender and non-distended Auscultation: normoactive bowel sounds Palpation: soft Back/Spine no CVA tenderness General Back: other FROM Extremity normal to inspection General Extremety ED: Negative for edema, pulses abnormal or tenderness General Extremity: Negative for edema or pulses abnormal Neuro oriented x3, CN's II-XII intact bilaterally and no sensory deficits noted Sensorium / Orientation: awake and alert Motor Exam: strength 5/5 throughout Skin no wounds Skin Narrative: Patient has intertriginous nontender blanching erythematous rash in axilla, some in neck folds, and a little in his umbilicus. No bullae, petechia, purpura. MDM MDM MDM Narrative Medical decision making narrative: Patient describes his throat pain and swelling going further down in his throat toward his glottis. His posterior oropharynx is erythematous but is otherwise fairly unremarkable although visualization is limited even with tongue depressor. There is no tongue edema. Given all of this, blood work and a CT were obtained, and as below it shows diffuse tonsillitis without an abscess. Therefore he was given a dose of Decadron for symptoms in addition to amoxicillin and advised to follow-up if it does not help, he is comfortable with that plan. With regards to his rash, etiology is unknown. 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 Advised to follow-up if it is persistent after the antibiotic is finished. Of note I think this is less likely to be Covid-related, I discussed this with the patient and he does not think he has Covid and does not want tested at this time. Lab Data Attestation: I reviewed the patient's lab results. Labs: Laboratory Results - last 24 hr 04/19/21 04/19/21 21:40 21:40 WBC 16.3 H RBC 4.54 L Hgb 13.6 Hct 40.8 MCV 89.9 MCH 30.0 MCHC 33.3 RDW Std Deviation 41.1 RDW Coeff of Adam 12.5 Plt Count 358 MPV 9.6 Immature Gran % (Auto) 0.600 Neut % (Auto) 70.8 H Lymph % (Auto) 18.6 L [place] % (Auto) 7.9 Eos % (Auto) 1.8 Baso % (Auto) 0.3 Absolute Neuts (auto) 11.6 H Absolute Lymphs (auto) 3.03 Nucleated RBC % 0 Sodium 137 Potassium 3.0 L Chloride 102 Carbon Dioxide 30.0 Anion Gap 5 BUN 17 Creatinine 0.80 Estim Creat Clear Calc 118.75 Est GFR (MDRD) Af Amer 137 Est GFR (MDRD) Non-Af 113 BUN/Creatinine Ratio 21.2 H Glucose 106 Calcium 9.4 Radiography Diagnostic Testing: Radiology Impression Soft Tissue Neck CT 04/19/21 21:18 IMPRESSION: Findings suggest diffuse tonsillitis. No drainable fluid collection to suggest abscess. Electronically Signed: Se Miramontes MD at 22:07 EDT Tel , Service support , Discharge Plan Triage Chief Complaint: Sore Throat ED Provider: Sherman Anthony Dx/Rx/DC Orders Clinical Impression: Acute tonsillitis Instructions: ED Tonsillitis Prescriptions: New amoxicillin 500 MG tablet 500 mg PO TID Qty: 30 RF: 0 No Action magnesium oxide 400 mg (241.3 mg magnesium) tablet 400 mg PO DAILY RF: 0 acetaminophen [Tylenol Extra Strength] 500 mg tablet 500 mg PO Q6H PRN (Reason: pain) Qty: 90 RF: 1 albuterol sulfate 90 mcg/actuation HFA aerosol inhaler 2 puff inhalation Q6H PRN (Reason: shortness of breath or wheezing) Qty: 18 RF: 1 (DME) blood pressure monitor Kit See Rx Instructions .ROUTE .MEDSUPPLY Qty: 1 RF: 0 lamotrigine 100 mg tablet 50 mg PO DAILY Qty: 30 RF: 0 nystatin 100,000 unit/gram powder 1 applic topical BID Qty: 60 RF: 0 cholecalciferol (vitamin D3) 2,000 unit capsule 2,000 unit capsule 2,000 unit PO DAILY Qty: 90 RF: 1 fluticasone propionate 50 mcg/actuation spray,suspension 2 spray INTRANASAL DAILY Qty: 47.4 RF: 1 hydrochlorothiazide 25 mg tablet 25 mg PO DAILY Qty: 90 RF: 0 pantoprazole 20 mg tablet,delayed release (DR/EC) 20 mg PO DAILY Qty: 90 RF: 0 cyclobenzaprine 10 mg tablet 10 mg PO TID PRN (Reason: Muscle Spasm) Qty: 20 RF: 0 gabapentin 300 mg capsule 300 mg PO QHS Qty: 30 RF: 1 budesonide-formoterol [Symbicort] 80-4.5 mcg/actuation HFA aerosol inhaler 2 puff inhalation BID Qty: 10.2 RF: 1 amlodipine 5 mg tablet 5 mg PO DAILY Qty: 30 RF: 0 amlodipine 2.5 mg tablet 2.5 mg PO DAILY Qty: 30 RF: 0 Primary Care Provider: Jonathan Ellington Referrals: Jonathan Ellington MD [Primary Care Provider] - 3-5 Days if not improving Disposition Disposition: Home, Self Care
[2021-04-19] MEDS: dexAMETHasone 10 MG/ML Vial IV (23:04)
[2021-04-19] MEDS: AMOXICILLIN 500 MG CAPSULE PO (23:05)
== END 2021-04-19 23:13 | disposition home or self-care (01) ==
PROVIDERS: Emergency Provider Emergency Medicine; PCP Internal Medicine
DX: J03.90 Acute tonsillitis, unspecified (principal); F17.210 Nicotine dependence, cigarettes, uncomplicated; Z96.642 Presence of left artificial hip joint; K21.9 Gastro-esophageal reflux disease without esophagitis; I10 Essential (primary) hypertension; Z79.899 Other long term (current) drug therapy
CPT/HCPCS: 70491; 80048; 85025; 87880; 96361; 96374; 99285; Q9967